=== PATIENT | male | born 1955 | race Caucasian/White ===

== ENCOUNTER 2025-05-23 05:46 | Day surgery (SDC) | payer OTHER ==
[~2025-05-23] VITALS: Ht 195.6 cm; Wt 132.0 kg
[2025-05-23] VITALS (19 sets, daily range): BP systolic 98–147; BP diastolic 51–92
[2025-05-23] MEDS ORDERED: ATOR40TA PO (06:19)
[2025-05-23] MEDS ORDERED: VITAMIN D5000 UNIT PO (06:20)
[2025-05-23] MEDS ORDERED: B-12500 MC2 PO (06:21)
[2025-05-23] MEDS ORDERED: ARTIFICIAL TEAR15 M2 BOTHEYES (06:22)
[2025-05-23] MEDS ORDERED: JARDIANCE10 MG PO (06:23)
[2025-05-23] MEDS ORDERED: FURO40 PO (06:23)
[2025-05-23] MEDS ORDERED: Tambocor100 MG PO (06:23)
[2025-05-23] MEDS ORDERED: Isosorbide Mono30 MG PO (06:24)
[2025-05-23] MEDS ORDERED: GABA300 PO (06:24)
[2025-05-23] MEDS ORDERED: LIDOCAINE1 EACH TOP (06:24)
[2025-05-23] MEDS ORDERED: LOSA50 PO (06:25)
[2025-05-23] MEDS ORDERED: MAGNESIUM OXID500 MG PO (06:25)
[2025-05-23] MEDS ORDERED: MELATONIN5 M1 PO (06:26)
[2025-05-23] MEDS ORDERED: METO25ER PO (06:26)
[2025-05-23] MEDS ORDERED: NITR.4SL SL (06:27)
[2025-05-23] MEDS ORDERED: OMEGA-3 + D SO1 EACH PO (06:28)
[2025-05-23] MEDS ORDERED: POTA10T PO (06:28)
[2025-05-23] MEDS ORDERED: ASCO500 PO (06:29)
[2025-05-23] MEDS ORDERED: TURMERIC500 M2 PO (06:29)
[2025-05-23] MEDS ORDERED: XARELTO20 MG PO (06:29)
[2025-05-23] MEDS ORDERED: ZINC15 PO (06:30)
[2025-05-23] MEDS ORDERED: NS 1,000 ML IV ONE (06:35)
[2025-05-23] MEDS ORDERED: Potassium Chloride 10 Meq Tablet SA PO ONE (07:00)
--- NOTE | 2025-05-23 07:20 | NUR ---
PT TOLERATED 200 J SYNCHRONIZED CARDIOVERSION WELL.
--- NOTE | 2025-05-23 07:23 | NUR ---
PT SITTING UP TALKING. PT DENIES CHEST PAIN. DR BALND TALKING WITH PT. CALL LIGHT IN REACH.
--- NOTE | 2025-05-23 07:43 | NUR ---
PT'S IN ROOM.
[2025-05-23] MEDS ORDERED: Tambocor100 MG (08:00)
[2025-05-23] MEDS ORDERED: TOPROL XL25 MG PO (08:01)
--- NOTE | 2025-05-23 08:35 | NUR ---
DISCHARGE INSTRUCTIONS REVIEWED ALL QUESTIONS ANSWERED. 20 G IV DISCONTINUED FROM RIGHT WRIST WITH INTACT CANNULA. PT ESCORTED OUT VIA WHEELCHAIR ESCORT.
[2025-05-23] MEDS ORDERED: Propofol 10mg/ml 20 ml Vial (Procedural) IV ONE (09:07)
== END 2025-05-23 22:00 | disposition home or self-care (01) ==
LOC: ORSCMMR 05:46 → MHTC 05:46 → ORSCMMR 05:47 → MHTC 05:47 → ORD 07:00 → ORSCMMR 07:00 → MHTC 22:00 → ORSCMMR 22:00
DX: I48.91 Unspecified atrial fibrillation (principal); R94.31 Abnormal electrocardiogram [ECG] [EKG]; R00.2 Palpitations; R06.02 Shortness of breath; I25.10 Atherosclerotic heart disease of native coronary artery without angina pectoris; I25.83 Coronary atherosclerosis due to lipid rich plaque; R42 Dizziness and giddiness; R93.1 Abnormal findings on diagnostic imaging of heart and coronary circulation; I11.0 Hypertensive heart disease with heart failure; I50.9 Heart failure, unspecified; Z79.01 Long term (current) use of anticoagulants; Z79.899 Other long term (current) drug therapy; Z88.0 Allergy status to penicillin
CPT/HCPCS: 92960; 93005; 93010; A9270; J2704; J7030

== ENCOUNTER 2025-08-14 06:15 | Day surgery (SDC) | payer OTHER ==
[~2025-08-14] VITALS: Ht 195.6 cm; Wt 143.0 kg
[~2025-08-14 06:15] MED LIST: ARTIFICIAL TEAR15 M2 BOTHEYES; ASCO500 PO; ATOR40TA PO; B-12500 MC2 PO; FURO40 PO; GABA300 PO; Isosorbide Mono30 MG PO; JARDIANCE10 MG PO; LIDOCAINE1 EACH TOP; LOSA50 PO; MAGNESIUM OXID500 MG PO; MELATONIN5 M1 PO; METO25ER PO; NITR.4SL SL; OMEGA-3 + D SO1 EACH PO; POTA10T PO; TOPROL XL25 MG PO; TURMERIC500 M2 PO; Tambocor100 MG; Tambocor100 MG PO; VITAMIN D5000 UNIT PO; XARELTO20 MG PO; ZINC15 PO
[2025-08-14] MEDS ORDERED: Amiodarone HCl200 MG PO (06:22)
[2025-08-14] MEDS ORDERED: TORSE20 PO (06:22)
[2025-08-14 06:30] VITALS: BP 123/67
[2025-08-14] MEDS ORDERED: NS 1,000 ML IV ONE (06:49)
[2025-08-14 07:05] VITALS: BP 106/54
--- NOTE | 2025-08-14 07:05 | NUR ---
ASSUMED CARE FROM ANESTHESIA. PT AWAKE AND VERBALIZING WELL. SR-SB 55-60 BPM POST CARDIOVERSION.
[2025-08-14 07:15] VITALS: BP 110/58
[2025-08-14 07:30] VITALS: BP 111/56
[2025-08-14 07:45] VITALS: BP 116/71
[2025-08-14 08:00] VITALS: BP 124/76
--- NOTE | 2025-08-14 08:00 | NUR ---
PT AND VERBALIZED UNDERSTANDING OF WRITTEN AND VERBAL D/C INST. IV REMOVED. SR 60 BPM ON D/C. PT TAKEN OUT OF THE DEPARTMENT VIA W/C.
[2025-08-14] MEDS ORDERED: Lidocaine HCl 2% 20 MG/ML 5ML SYR IV ONE (15:32)
== END 2025-08-14 23:00 | disposition home or self-care (01) ==
LOC: MHTC 06:15
DX: I48.91 Unspecified atrial fibrillation (principal); R94.31 Abnormal electrocardiogram [ECG] [EKG]; R00.2 Palpitations; R06.02 Shortness of breath; I25.10 Atherosclerotic heart disease of native coronary artery without angina pectoris; I25.83 Coronary atherosclerosis due to lipid rich plaque; R42 Dizziness and giddiness
CPT/HCPCS: 92960; 93005; 93010; 93246; J2003; J2704; J7030